=== PATIENT | male | born 1990 | race American Indian/Alaskan Native ===

== ENCOUNTER 2016-07-19 20:15 | Emergency (ER) | payer SELFPAY ==
[2016-07-19 21:03] VITALS: BP 127/79; PULSE 91; RESP 20; TEMP 97.9; O2SAT 97
--- NOTE | 2016-07-19 22:17 | C.PDOC ---
History Of Present Illness A 25 year old male presents to the emergency room with complaints of right ankle pain after stepping in a hole at 3pm today. Patient reports that he is unable to bear weight several hours after injury. Patient denies any numbness, tingling, any sensory changes, any other pain, or any other complaints. Time Seen by Provider: 07/19/16 21:57 Chief Complaint (Nursing): Lower Extremity Problem/Injury History Per: Patient History/Exam Limitations: no limitations Onset/Duration Of Symptoms: Hrs (7) Current Symptoms Are (Timing): Still Present Severity: Mild Pain Scale Rating Of: 4 Recent travel outside of the [place]: No - Ankle/Foot Description Of Injury: Other (Stepped in a hole) Currently Unable To: Bear Weight Past Medical History Reviewed: Historical Data, Nursing Documentation, Vital Signs Vital Signs: Last Vital Signs Temp 97.9 F 07/19/16 20:59 Pulse 91 H 07/19/16 20:59 Resp 20 07/19/16 20:59 BP 127/79 07/19/16 20:59 Pulse Ox 97 07/19/16 23:20 Family History: States: Unknown Family Hx - Social History Hx Alcohol Use: No Hx Substance Use: No - Immunization History Hx Tetanus Toxoid Vaccination: No Hx Influenza Vaccination: No Hx Pneumococcal Vaccination: No Review Of Systems Constitutional: Negative for: Fever, Chills Gastrointestinal: Negative for: Nausea, Vomiting, Diarrhea Musculoskeletal: Positive for: Other (Right ankle pain) Neurological: Negative for: Weakness, Numbness Physical Exam - Physical Exam Appears: Non-toxic, No Acute Distress Skin: Normal Color, Warm, Dry Head: Atraumatic, Normacephalic Eye(s): bilateral: Normal Inspection Oral Mucosa: Moist Extremity: No Normal ROM (Decreased ROM secondary to pain), Tenderness ( Tenderness at the proximal right 4th metatarsal and anterior lateral malleolus. No 5th metatarsal tenderness or medial malleolus. ), No Deformity, No Swelling Pulses: Left Dorsalis Pedis: Normal (+2), Right Dorsalis Pedis: Normal (+2) Neurological/Psych: Oriented x3, Normal Speech, Normal Motor, Normal Sensation ED Course And Treatment O2 Sat by Pulse Oximetry: 97 - Other Rad Right Ankle X-ray X-Ray: Interpreted by Me, Viewed By Me Interpretation: Impression: As read by me, no fracture or dislocation. Disposition Counseled Patient/Family Regarding: Diagnosis, Need For Followup - Disposition Referrals: Guerda Ahumada MD [Staff Provider] - Disposition: HOME/ ROUTINE Disposition Time: 23:22 Condition: GOOD Additional Instructions: Gatito bandage for support. use crutches for 2-3 days, then gradually start weight bearing. Follow up in Orthopedics, call for an appointment. Ibuprofen for pain. Instructions: Ankle Sprain (ED), Foot Sprain (ED) Forms: Gen Discharge Inst Urdu - Clinical Impression Clinical Impression: Sprain of ankle, Sprain of foot - Scribe Statement The provider has reviewed the documentation as recorded by the Scribelmer Guallpa All medical record entries made by the Abisaiibelmer were at my direction and personally dictated by me. I have reviewed the chart and agree that the record accurately reflects my personal performance of the history, physical exam, medical decision making, and the department course for this patient. I have also personally directed, reviewed, and agree with the discharge instructions and disposition.
--- NOTE | 2016-07-20 11:45 | RAD ---
PROCEDURE: Right ankle dated 07/19/2016 Three standard views of the right ankle performed. HISTORY: Lateral malleolar pain. COMPARISON: Comparison made with concurrent radiographs of the right foot. FINDINGS: BONES: No evidence of acute displaced fracture nor dislocation. The osseous structures are intact. Ankle mortise maintained. Talar dome intact. There appears to be some very minor soft tissue swelling over the lateral malleolus. If symptoms persist or occult fracture suspected clinically, consider repeat radiographs 5-10 days as most fractures should become radiographically evident in this timeframe. JOINTS: Normal. No dislocation. SOFT TISSUES: As above. No radiopaque foreign bodies OTHER FINDINGS: None. IMPRESSION: No definitive radiographic evidence of acute displaced fracture nor dislocation. There is minor soft tissue swelling overlying the lateral malleolus. If symptoms persist or occult fracture suspected clinically consider repeat radiographs in 5-10 days as most fractures should become radiographically evident this timeframe.
--- NOTE | 2016-07-20 11:46 | RAD ---
PROCEDURE: Right foot dated 07/19/2016. Three standard views of the right foot performed HISTORY: pain prox 4th metatarsal COMPARISON: Comparison made with concurrent radiographs of the right ankle. FINDINGS: BONES: No evidence of acute displaced fracture nor dislocation. The osseous structures appear intact. No cortical destructive changes. JOINTS: Minor hallux valgus deformity. No significant osteoarthritis SOFT TISSUES: No radiopaque foreign bodies are identified. OTHER FINDINGS: None. IMPRESSION: No evidence of acute displaced fracture nor dislocation. If symptoms persist or occult fracture suspected clinically, consider repeat radiographs 5-10 days as most fractures should become radiographically evident in this timeframe.
== END 2016-07-19 23:40 | disposition home or self-care (01) ==
LOC: C.ER 20:15
DX: S93.401A Sprain of unspecified ligament of right ankle, initial encounter (principal); X58.XXXA Exposure to other specified factors, initial encounter; Y92.410 Unspecified street and highway as the place of occurrence of the external cause